=== PATIENT | female | born 1985 | race Caucasian/White ===

== ENCOUNTER 2019-01-13 22:35 | Emergency (ER) | payer BC, MEDICAID ==
--- NOTE | 2019-01-13 23:12 | EDM.PDOC ---
ED HPI GENERAL MEDICAL PROBLEM - General Chief Complaint: Lower Extremity Injury/Pain Stated Complaint: ANKLE AND LEG PAIN Time Seen by Provider: 01/13/19 22:45 Source of Information: Reports: Patient History Limitations: Reports: No Limitations - History of Present Illness INITIAL COMMENTS - FREE TEXT/NARRATIVE: Patient comes into the emergency department with complaint of a right ankle injury. Patient states that she sprained her ankle approximately 3 weeks ago. She did follow-up in the clinic and was prescribed a brace. An x-rays completed - the x-ray did show that she did not have any acute fractures. Patient was told that her ankle should be better in 7-10 days. Patient did wear brace for about 3 or 4 days and stopped wearing it after that. She feels that things are going fairly well up until about a day ago. Then she states that swelling started forming on the lateral aspect of the ankle and bruising formation on the medial aspect. She states that she's had more pain and discomfort on the anterior surface of the ankle and calf region. She denies any redness, new injuries, posterior calf pain, this of breath, chest pain, swelling in the calf region or upper leg, or irrational tenderness over the right leg. Onset: Today Quality: Reports: Ache, Throbbing Worsens with: Reports: None Associated Symptoms: Reports: No Other Symptoms Treatments RN ENT: Reports: Acetaminophen, NSAIDS, Splint(s) Right Leg Pain Score (Numeric/FACES): 6 - Related Data Allergies Allergy/AdvReac Type Severity Reaction Status Date / Time No Known Allergies Allergy Verified 01/13/19 22:43 Home Meds: Home Meds amLODIPine [Norvasc] 5 mg PO DAILY 01/13/19 [History] atorvaSTATin [Lipitor] 20 mg PO DAILY 01/13/19 [History] hydroCHLOROthiazide [Hydrochlorothiazide] 1 tab PO DAILY 01/13/19 [History] Past Medical History Cardiovascular History: Reports: High Cholesterol, Hypertension Social & Family History - Tobacco Use Smoking Status *Q: Current Every Day Smoker Years of Tobacco use: 20 Packs/Tins Daily: 0.7 Review of Systems - Review of Systems Review Of Systems: ROS reveals no pertinent complaints other than HPI. Constitutional: Reports: No Symptoms Eyes: Reports: No Symptoms Respiratory: Reports: No Symptoms Cardiovascular: Reports: No Symptoms Genitourinary: Reports: No Symptoms Musculoskeletal: Reports: Foot Pain Skin: Reports: No Symptoms Neurological: Reports: No Symptoms Psychiatric: Reports: No Symptoms ED EXAM, GENERAL - Physical Exam Exam: See Below Exam Limited By: No Limitations General Appearance: Alert, WD/WN, No Apparent Distress Neck: Normal Inspection, Supple Respiratory/Chest: No Respiratory Distress, No Accessory Muscle Use Cardiovascular: Normal Peripheral Pulses, No Edema Peripheral Pulses: 3+: Posterior Tibial (L), Posterior Tibial (R), Dorsalis Pedis (L), Dorsalis Pedis (R) Back Exam: Normal Inspection, Full Range of Motion Extremities: Normal Inspection, Leg Pain (right ankle- ecchymosis swelling on the lateral aspect of the malleolus. No redness or limited range of motion noted. CMS intact. No redness, swelling, or tenderness on the. Pulses palpable. Able to bear weight without difficulty). No: Slow Capillary Refill, Joint Swelling, Limited Range of Motion, Increased Warmth, Mottled, Redness Neurological: Alert, Oriented Psychiatric: Normal Affect, Normal Mood Skin Exam: Warm, Dry, Intact Course - Vital Signs Last Recorded V/S: Last Vital Signs Temp 37.4 C 01/13/19 22:45 Pulse 110 H 01/13/19 22:45 Resp 18 01/13/19 22:45 BP 175/112 H 01/13/19 22:45 Pulse Ox 97 01/13/19 22:45 Departure - Departure Time of Disposition: 23:15 Disposition: Home, Self-Care 01 Condition: Good Clinical Impression: Ankle sprain Qualifiers: Encounter type: subsequent encounter Involved ligament of ankle: unspecified ligament Laterality: right Qualified Code(s): S93.401D - Sprain of unspecified ligament of right ankle, subsequent encounter - Discharge Information *PRESCRIPTION DRUG MONITORING PROGRAM REVIEWED*: Not Applicable *COPY OF PRESCRIPTION DRUG MONITORING REPORT IN PATIENT WILMER: Not Applicable Instructions: Ankle Sprain Referrals: Palma Tirado MD [Primary Care Provider] - Forms: ED Department Discharge Additional Instructions: 1. rest 2. elevated the leg above the level of the heart 3. can take Tylenol and ibuprofen as needed for pain and discomfort 4. Use brace that was given to you for another 5 days to help with support 5. Use tabby wrap around the ankle to help reduce the swelling 6. Follow up in the clinic in 1 week if not better 7. Call with any questions or concerns - Assessment/Plan Assessment:: 1. right ankle injury Plan: 1. Eduction regarding wearing the brace was stressed 2. OTC medication options provided 3. Recommendations of icing the area 4. PERC Rule= 0. 5. Education regarding RICE provided. 6. Follow up care recommended as needed 7. All questions and concerns dressed prior to discharge
== END 2019-01-13 23:15 | disposition home or self-care (01) ==
LOC: VM.ED 22:35
DX: S93.401A Sprain of unspecified ligament of right ankle, initial encounter (principal); E78.00 Pure hypercholesterolemia, unspecified; I10 Essential (primary) hypertension; F17.210 Nicotine dependence, cigarettes, uncomplicated; X58.XXXA Exposure to other specified factors, initial encounter; Z79.899 Other long term (current) drug therapy
CPT/HCPCS: 99283